=== PATIENT | female | born 1940 | race Caucasian/White ===

== ENCOUNTER 2018-06-24 14:15 | Observation (INO) ==
[2018-06-24] MEDS ORDERED: MECLIZINE 25 MG TABLET PO STA (16:39)
[2018-06-24] MEDS ORDERED: SODIUM CHLORIDE 0.9% 500 ML IV STA (16:39)
[2018-06-24] MEDS ORDERED: ONDANSETRON 4 MG/2 ML VIAL IV STA (16:39)
[2018-06-24 17:30] LABS: Basophils # 0.1 10*3/uL (0.0-0.2); Basophils % 0.9 % (0.0-0.8); Eosinophils % 0.3 % (0.00-10.9); Hematocrit 41.8 VOL% (35.7-47.0); Immature Granulocytes % 0.3 %; Immature Granulocytes Absolute 0.02 #; Lymphocytes # 1.1 10*3/uL (1.4-4.0); Lymphocytes % 17.9 % (21.3-54.2); Mean Corpuscular HGB Conc 33.5 GM/DL (32-36); Mean Corpuscular Hemoglobin 30 PG (27-34); Mean Corpuscular Volume 89.9 FL (87-102); Mean Platelet Volume 10.2 FL (9.6-12.0); Monocytes # 0.2 10*3/uL (0.11-0.8); Monocytes % 3.9 % (1.7-12.7); Neutrophils # 4.5 10*3/uL (1.4-7.4); Neutrophils % 76.7 % (38.7-73.9); Platelet Count 224 T/CUMM (130-400); Red Blood Count 4.65 MC/CUMM (3.8-5.5); Red Cell Distribution Width 13.2 % (9.3-17.3); White Blood Count 5.9 T/CUMM (4-12)
[2018-06-24] MEDS ORDERED: ACETAMINOPHEN 325 MG TABLET PO PRN (17:33)
[2018-06-24] MEDS ORDERED: ONDANSETRON 4 MG/2 ML VIAL IV PRN (17:33)
[2018-06-24 17:49] LABS: Albumin 4.2 G/DL (3.4-5.0); Bilirubin,Total 0.4 MG/DL (0.2-1.0); Calcium 8.8 MG/DL (8.5-10.1); Osmolality,Calculated 282.3 MOS/KG (273-304); Potassium 3.6 MMOL/L (3.5-5.1); Thyroid Stimulating Hormone 3.14 uIU/ml (0.358-3.74); Total Protein 8.3 G/DL (6.4-8.3)
[2018-06-24 17:52] LABS: Barbiturates Screen,Urine Negative (Negative); Benzodiazepines Screen,Urine Negative (Negative); Cannabinoid Screen,Urine Negative (Negative); Opiate Screen,Urine Negative (Negative); Phencyclidine Screen,Urine Negative (Negative)
[2018-06-24 17:55] LABS: Apearance,Urine CLEAR (Clear); Bilirubin,Urine Negative (Negative); Blood, Urine Small mg/dL (Negative); Glucose,Urine (UA) Negative (Negative); Hyaline Casts,Urine 1 /LPF (0-3); Ketones,Urine Negative (Negative); Nitrite,Urine Negative (Negative); Protein,Urine Negative; RBC,Urine 2 /HPF (0-4); Urine Color Yellow (Yellow); Urine Urobilinogen < 2.0 EU/DL (0.2-1.0); WBC,Urine 1 /HPF (0-6)
[2018-06-24] MEDS ORDERED: SODIUM CHLORIDE 0.45% 1,000 ML IV SCH (18:00)
[2018-06-24 18:06] LABS: Alanine Aminotransferase 19 U/L (13-56); Albumin 4.2 G/DL (3.4-5.0); Alkaline Phosphatase 125 U/L (45-117); Aspartate Amino Transferase 35 U/L (0-37); Blood Urea Nitrogen 16 MG/DL (7-18); Calcium 9.2 MG/DL (8.5-10.1); Glucose 90 MG/DL (74-106); Osmolality,Calculated 277.5 MOS/KG (273-304); Potassium 4.6 MMOL/L (3.5-5.1); Sodium 139 MMOL/L (136-145); Total Protein 8.6 G/DL (6.4-8.3); Troponin I < 0.015 NG/ML (0.00-0.045)
[2018-06-24 18:45] LABS: PT Patient Result 10.5 SECS
[2018-06-24 23:09] LABS: Troponin I < 0.015 NG/ML (0.00-0.045)
[2018-06-24] MEDS: DOCUSATE SODIUM 100 MG CAPSULE PO SCH (23:48)
[2018-06-24] MEDS: ENOXAPARIN 40 MG/0.4 ML SYRINGE SUBCUT SCH (23:49)
[2018-06-25] MEDS: traMADol 50 MG TABLET PO SCH ×3 (00:13→20:38)
[2018-06-25] MEDS: GABAPENTIN 300 MG CAPSULE PO SCH ×2 (00:13→17:20)
[2018-06-25 01:29] LABS: Troponin I < 0.015 NG/ML (0.00-0.045)
[2018-06-25 03:07] LABS: Basophils % 0.5 % (0.0-0.8); Eosinophils # 0.1 10*3/uL (0.0-0.87); Hematocrit 36.3 VOL% (35.7-47.0); Immature Granulocytes % 0.5 %; Immature Granulocytes Absolute 0.02 #; Lymphocytes # 1.6 10*3/uL (1.4-4.0); Lymphocytes % 40.8 % (21.3-54.2); Mean Corpuscular HGB Conc 33.1 GM/DL (32-36); Mean Corpuscular Hemoglobin 30 PG (27-34); Mean Corpuscular Volume 89.6 FL (87-102); Mean Platelet Volume 9.7 FL (9.6-12.0); Monocytes # 0.4 10*3/uL (0.11-0.8); Monocytes % 9.1 % (1.7-12.7); Neutrophils # 1.9 10*3/uL (1.4-7.4); Neutrophils % 47.1 % (38.7-73.9); Platelet Count 169 T/CUMM (130-400); Red Blood Count 4.05 MC/CUMM (3.8-5.5); Red Cell Distribution Width 13.2 % (9.3-17.3)
[2018-06-25 03:29] LABS: Calcium 8.4 MG/DL (8.5-10.1); Potassium 3.6 MMOL/L (3.5-5.1); Risk Ratio 2.07
[2018-06-25 03:31] LABS: Troponin I < 0.015 NG/ML (0.00-0.045)
[2018-06-25] MEDS: ASPIRIN CHEW 81 MG TABLET PO SCH (08:55)
[2018-06-25] MEDS: DOCUSATE SODIUM 100 MG CAPSULE PO SCH ×2 (08:55→20:38)
[2018-06-25] MEDS: SERTRALINE 50 MG TABLET PO SCH (08:55)
[2018-06-25] MEDS: PANTOPRAZOLE 40 MG TABLET PO SCH (08:55)
[2018-06-25] MEDS: ENOXAPARIN 40 MG/0.4 ML SYRINGE SUBCUT SCH (20:38)
[2018-06-25] MEDS: SIMVASTATIN 40 MG TABLET PO SCH (20:38)
[2018-06-26 05:15] LABS: Calcium 8.7 MG/DL (8.5-10.1); Potassium 3.3 MMOL/L (3.5-5.1)
[2018-06-26] MEDS: SERTRALINE 50 MG TABLET PO SCH (08:34)
[2018-06-26] MEDS: PANTOPRAZOLE 40 MG TABLET PO SCH (08:34)
[2018-06-26] MEDS: DOCUSATE SODIUM 100 MG CAPSULE PO SCH ×2 (08:34→20:33)
[2018-06-26] MEDS: ASPIRIN CHEW 81 MG TABLET PO SCH (08:34)
[2018-06-26] MEDS: traMADol 50 MG TABLET PO SCH ×2 (08:39→20:33)
[2018-06-26] MEDS ORDERED: POTASSIUM CHLORIDE 20 MEQ PACK PO ONE (10:17)
[2018-06-26] MEDS: GABAPENTIN 300 MG CAPSULE PO SCH (17:23)
[2018-06-26] MEDS: SIMVASTATIN 40 MG TABLET PO SCH (20:33)
[2018-06-26] MEDS: ENOXAPARIN 40 MG/0.4 ML SYRINGE SUBCUT SCH (20:33)
[2018-06-27] MEDS: DOCUSATE SODIUM 100 MG CAPSULE PO SCH ×2 (08:49→21:04)
[2018-06-27] MEDS: ASPIRIN CHEW 81 MG TABLET PO SCH (08:49)
[2018-06-27] MEDS: traMADol 50 MG TABLET PO SCH ×2 (08:49→21:04)
[2018-06-27] MEDS: PANTOPRAZOLE 40 MG TABLET PO SCH (08:49)
[2018-06-27] MEDS: SERTRALINE 50 MG TABLET PO SCH (08:49)
[2018-06-27] MEDS ORDERED: POTASSIUM CHLORIDE 8 MEQ CAPSULE PO ONE (13:09)
[2018-06-27] MEDS: MECLIZINE 25 MG TABLET PO SCH ×2 (14:28→21:04)
[2018-06-27] MEDS ORDERED: LORazepam 1 MG TABLET PO ONE (14:37)
[2018-06-27] MEDS: GABAPENTIN 300 MG CAPSULE PO SCH (17:07)
[2018-06-27] MEDS: SIMVASTATIN 40 MG TABLET PO SCH (21:04)
[2018-06-27] MEDS: ENOXAPARIN 40 MG/0.4 ML SYRINGE SUBCUT SCH (21:04)
[2018-06-28 06:42] LABS: Calcium 8.4 MG/DL (8.5-10.1); Potassium 3.7 MMOL/L (3.5-5.1)
[2018-06-28] MEDS: DOCUSATE SODIUM 100 MG CAPSULE PO SCH ×2 (08:57→20:58)
[2018-06-28] MEDS: PANTOPRAZOLE 40 MG TABLET PO SCH (08:57)
[2018-06-28] MEDS: ASPIRIN CHEW 81 MG TABLET PO SCH (08:57)
[2018-06-28] MEDS: SERTRALINE 50 MG TABLET PO SCH (08:57)
[2018-06-28] MEDS: MECLIZINE 25 MG TABLET PO SCH ×3 (08:57→20:58)
[2018-06-28] MEDS: traMADol 50 MG TABLET PO SCH ×2 (08:58→20:58)
[2018-06-28] MEDS: GABAPENTIN 300 MG CAPSULE PO SCH (18:01)
[2018-06-28] MEDS: ENOXAPARIN 40 MG/0.4 ML SYRINGE SUBCUT SCH (20:58)
[2018-06-28] MEDS: SIMVASTATIN 40 MG TABLET PO SCH (20:58)
[2018-06-29] MEDS: ASPIRIN CHEW 81 MG TABLET PO SCH (08:44)
[2018-06-29] MEDS: PANTOPRAZOLE 40 MG TABLET PO SCH (08:44)
[2018-06-29] MEDS: DOCUSATE SODIUM 100 MG CAPSULE PO SCH ×2 (08:44→20:57)
[2018-06-29] MEDS: MECLIZINE 25 MG TABLET PO SCH ×3 (08:44→20:57)
[2018-06-29] MEDS: SERTRALINE 50 MG TABLET PO SCH (08:44)
[2018-06-29] MEDS: traMADol 50 MG TABLET PO SCH ×2 (08:44→20:57)
[2018-06-29] MEDS: GABAPENTIN 300 MG CAPSULE PO SCH (17:01)
[2018-06-29] MEDS: SIMVASTATIN 40 MG TABLET PO SCH (20:57)
[2018-06-29] MEDS: ENOXAPARIN 40 MG/0.4 ML SYRINGE SUBCUT SCH (20:57)
[2018-06-30] MEDS: PANTOPRAZOLE 40 MG TABLET PO SCH (08:28)
[2018-06-30] MEDS: DOCUSATE SODIUM 100 MG CAPSULE PO SCH (08:28)
[2018-06-30] MEDS: SERTRALINE 50 MG TABLET PO SCH (08:28)
[2018-06-30] MEDS: traMADol 50 MG TABLET PO SCH (08:28)
[2018-06-30] MEDS: ASPIRIN CHEW 81 MG TABLET PO SCH (08:29)
[2018-06-30] MEDS: MECLIZINE 25 MG TABLET PO SCH (08:29)
[2018-06-30 12:03] VITALS: BP 112/68
== END 2018-06-30 15:19 | disposition home or self-care (01) ==
LOC: N.ED 14:15 → INTOOBSV 19:39 → N.EDINP 19:39 → N.TELES 19:46
PROVIDERS: ADMIT Family Medicine; ATTEND Family Medicine